=== PATIENT | male | born 1950 | race Caucasian/White ===

== ENCOUNTER → 2019-01-03 | Outpatient (CLI) | payer MEDICARE, OTHER | LOC: LL.DI 13:10 | PROVIDERS: ATTEND Family Medicine | DX: R76.11 Nonspecific reaction to tuberculin skin test without active tuberculosis (principal) | CPT/HCPCS: 71046 ==

== ENCOUNTER 2019-06-13 11:17 | Emergency (ER) | payer MEDICARE, OTHER ==
[~2019-06-13 11:17] MED LIST: Famotidine 20 MG/2 ML SDV ONE; Furosemide 40 MG/4 ML VIAL ONE
[2019-06-13] MEDS ORDERED: Famotidine 20 MG/2 ML SDV IVPUSH ONE (11:18)
[2019-06-13] MEDS ORDERED: Sodium Chloride 0.9% 10 ML Syringe FLUSH PRN (11:18)
--- NOTE | 2019-06-13 11:18 | EDM.PDOC ---
ED HPI GENERAL MEDICAL PROBLEM - General Chief Complaint: Neuro Symptoms/Deficits Stated Complaint: Unresponsive, Stroke Code Time Seen by Provider: 06/13/19 11:18 Departure - Discharge Information
--- NOTE | 2019-06-13 11:30 | EDM.PDOC ---
ED HPI GENERAL MEDICAL PROBLEM - General Chief Complaint: Neuro Symptoms/Deficits Stated Complaint: Unresponsive, Stroke Code Time Seen by Provider: 06/13/19 11:18 Source of Information: Reports: EMS, [facility] Records, Old Records ([facility] EMR. No paper hospital chart available.). Denies: EMS Notes Reviewed (Not available at time of dictation) History Limitations: Reports: Altered Mental Status - History of Present Illness INITIAL COMMENTS - FREE TEXT/NARRATIVE: The patient was brought to the emergency room via embolus with art model accompaniment with O2 repeat increased from previous 5 L/m by nasal cannula to O2 by mask at 10 L/m by nasal cannula. Note the patient's normal O2 sats are in the high 80s and the low 90s on room air with O2 sats in the low 80th percentile on 5 L/m by nasal cannula at time of arrival of paramedics. No other treatment in route. Patient is unable to give any history with limited history obtained from the detention prior to arrival to this facility. Patient did eat breakfast this morning, although he was somewhat fatigued. His fatigue did increase at about 10:25 hours this morning with patient slow to respond with this being the last well-known time of the patient. Accu-Chek by nursing staff at [facility] in [place] was 123 mg percent per history from the paramedics. No known recent history of chest pain or anginal type symptoms. Patient was nonresponsive and diaphoretic at time of their arrival to this facility. No known pain or previous discomfort with patient nonresponsive to either verbal or sternal rub, etc. Onset: Today, Gradual Onset Date: 06/13/19 Onset Time: 10:15 Duration: Constant, Getting Worse Severity: Severe Improves with: Reports: None Worsens with: Reports: None Context: Denies: Sick Contact (No exposure to COVID-19), Trauma Associated Symptoms: Reports: Diaphoresis, Malaise, Other (Nonresponsive as above). Denies: Seizure Treatments SCRIPT SUPERVISOR: Reports: Oxygen - Related Data Allergies Allergy/AdvReac Type Severity Reaction Status Date / Time No Known Allergies Allergy Verified 06/13/19 12:12 Home Meds: Home Meds Acetaminophen [Mapap] 1,000 mg PO Q4H PRN MDD 3 06/13/19 [History] Aspirin [Aspirin EC] 81 mg PO DAILY@0600 20 [History] Capsaicin [Zostrix 0.025% Crm] 1 applic TOP BID PRN 06/13/19 [History] Cholecalciferol (Vitamin D3) [Vitamin D3] 50 mcg PO DAILY@59906/13/19 [History ] Cyanocobalamin (Vitamin B-12) [B-12] 1,000 mcg PO DAILY@59906/13/19 [History] Cyclobenzaprine [Flexeril] 10 mg PO BID PRN 06/13/19 [History] Etodolac 400 mg PO BID@06,189906/13/19 [History] Folic Acid 1 mg PO DAILY@59906/13/19 [History] Furosemide 40 mg PO DAILY@59906/13/19 [History] Gabapentin [Neurontin] 600 mg PO TID@,12,06/13/19 [History] Hydrocortisone 10 mg PO DAILY@189906/13/19 [History] Hydrocortisone 15 mg PO DAILY@59906/13/19 [History] Levothyroxine [Synthroid] 50 mcg PO DAILY@59906/13/19 [History] Lidocaine 5% [Lidoderm 5%] 1 patch TOP DAILY@59906/13/19 [History] Losartan [Cozaar] 25 mg PO DAILY@59906/13/19 [History] Nitroglycerin [Nitrostat] 0.4 mg SL ASDIRECTED PRN MDD 2 06/13/19 [History] Omeprazole 40 mg PO DAILY@59906/13/19 [History] Spironolactone [Aldactone] 25 mg PO DAILY@59906/13/19 [History] Thiamine HCl 100 mg PO DAILY@59906/13/19 [History] atorvaSTATin [Lipitor] 40 mg PO BEDTIME@189906/13/19 [History] carvediloL [Coreg] 12.5 mg PO BID@599,189906/13/19 [History] dexAMETHasone [Dexamethasone] 4 mg IM ASDIRECTED PRN 06/13/19 [History] polyethylene glycoL 3350 [MiraLAX] 17 gm PO DAILY@59906/13/19 [History] Past Medical History HEENT History: Reports: Cataract, Hard of Hearing, Impaired Vision, Other (See Below) Other HEENT History: Chronic tinnitus. Cardiovascular History: Reports: CAD, Cardiomyopathy, Heart Failure, High Cholesterol, Hypertension, Pacemaker, Other (See Below) Other Cardiovascular History: History of cardiomegaly with known combined systolic/diastolic CHF. Mi history unknown. Respiratory History: Reports: COPD, Other (See Below) Other Respiratory History: Chronic hypoxia Gastrointestinal History: Reports: Colon Polyp, GERD, Hiatal Hernia, Other (See Below) Other Gastrointestinal History: Linder's esophagitis. Large diaphragmatic hernia. Genitourinary History: Reports: Acute Renal Failure, BPH, Urinary Incontinence, Other (See Below) Other Genitourinary History: Mild acute renal insufficiency with hyperkalemia on 05/03/19. Psychiatric History: Reports: Addiction, Anxiety, Depression, Other (See Below) Other Psychiatric History: History of alcohol abuse. Endocrine/Metabolic History: Reports: Hypokalemia, Hypothyroidism, Obesity/BMI 30+, Vitamin D Deficiency, Other (See Below) Other Endocrine/Metabolic History: Unknown type of adrenal cortical deficiency. Hypoalbuminemia. Hematologic History: Reports: Anemia - Past Surgical History Cardiovascular Surgical History: Reports: Pacer Male Surgical History: Denies: Circumcision ED ROS GENERAL - Review of Systems Review Of Systems: Unable To Obtain Reason Not Obtained: comatos as above ED EXAM, NEURO - Physical Exam Exam: See Below Exam Limited By: Altered Mental Status General Appearance: Obtunded, Severe Distress Eye Exam: Bilateral Eye: EOMI (No ocular movement secondary to sedation), Normal Fundi (Fundi normal although difficult exam secondary to myosis, no nystagmus), PERRL (Moderate myosis with only minimal response to light bilaterally) Ears: Normal External Exam, Normal Canal (Moderate cerumen in EACs bilaterally) , Normal TMs, Hearing Loss (by history could not be assessed) Nose: Normal Inspection, Normal Mucosa, No Blood Throat/Mouth: Normal Gums, Normal Oropharynx, Perioral Cyanosis. No: Normal Teeth (Complete dentures uppers and lowers), Dysphagia Head Exam: Atraumatic, Normocephalic. No: Facial Swelling, Facial Tenderness, Sinus Tenderness Neck: Supple, Non-Tender, Carotid Bruit (Mild bilateral carotid bruits). No: Lymphadenopathy (L), Lymphadenopathy (R), Thyromegaly Respiratory/Chest: No Accessory Muscle Use, Respiratory Distress (Mild Kussmaul breathing), Rales (Severe diffuse bilateral). No: Pleural Rub, Retractions Cardiovascular: Normal Peripheral Pulses, Regular Rate, Rhythm, No Gallop, No JVD, No Murmur, No Rub. No: No Edema (Dependent edema as below), Gallop/S3, Gallop/S4, Friction Rub GI/Abdominal: Normal Bowel Sounds, Soft, Non-Tender, No Organomegaly, No Distention, No Abnormal Bruit, No Mass, Pelvis Stable, Other (Obese). No: Guarding (Male) Exam: Deferred Rectal (Males) Exam: Deferred Neurological: Other (No response to verbal or painful stimuli). No: Babinski Back Exam: Normal Inspection, Full Range of Motion. No: CVA Tenderness (L), CVA Tenderness (R), Muscle Spasm Extremities: Non-Tender, Normal Capillary Refill, Pedal Edema (+1-+2 bilateral pedal/pretibial edema). No: Trudy's Sign Psychiatric: Other (Cannot be assessed) Skin Exam: Cyanosis (Moderate on arrival improved with oxygenation), Diaphoretic. No: Ecchymosis, Petechiae, Wound/Incision EKG INTERPRETATION EKG Date: 06/13/19 Time: 11:37 Rhythm: Other (100% paced rhythm) Rate (Beats/Min): 62 Comparison: NA - No Prior EKG EKG Interpretation Comments: 100% paced rhythm Course - Vital Signs Last Recorded V/S: See Stroke Code sheet - Orders/Labs/Meds Orders: Active Orders 24 hr Category Date Time Status Blood Glucose Check, Bedside [RC] STAT Care 06/13/19 11:19 Active Cardiac Monitoring [RC] STAT Care 06/13/19 11:19 Active EKG Documentation Completion [RC] ASDIRECTED Care 06/13/19 11:19 Active NIH Stroke Scale [RC] ASDIRECTED Care 06/13/19 11:19 Active Oxygen Therapy, ED [RC] CONTINUOUS Care 06/13/19 11:19 Active Peripheral IV Care [RC] . DIRECTED Care 06/13/19 11:19 Active Pulse Oximetry [RC] CONTINUOUS Care 06/13/19 11:19 Active Up With Assistance [RC] ASDIRECTED Care 06/13/19 11:19 Active Urinary Catheter Assessment [RC] ASDIRECTED Care 06/13/19 11:53 Active Urinary Catheter Insertion [Insert Urinary Catheter] [ Care 06/13/19 12:00 Ordered OM.PC] Q24H Vital Signs [RC] PFP Care 06/13/19 11:19 Active Nothing per Oral Now Diet [DIET] Diet 06/13/19 Breakfast Active Chest 1V Frontal [CR] Stat Exams 06/13/19 11:19 Taken Head wo Cont [CT] Stat Exams 06/13/19 11:19 Taken CULTURE URINE [RM] Routine Lab 06/13/19 11:53 Ordered PROLACTIN [REF] Stat Lab 06/13/19 11:50 Received Sodium Chloride 0.9% [Saline Flush] Med 06/13/19 11:18 Active 10 ml FLUSH ASDIRECTED PRN Obtain Past Medical Record [OM.PC] Stat Oth 06/13/19 11:19 Active Peripheral IV Insertion Adult [OM.PC] Stat Oth 06/13/19 11:19 Ordered Resuscitation Status Stat Resus Stat 06/13/19 11:18 Ordered Medication Orders Sodium Chloride (Saline Flush) 10 ml FLUSH ASDIRECTED PRN PRN Reason: Keep Vein Open Labs: Laboratory Tests 06/13/19 06/13/19 06/13/19 Range/Units 11:20 11:27 11:30 WBC 14.7 H (4.0-10.2) K/uL RBC 4.77 (4.33-5.41) M/uL Hgb 14.0 (13.1-16.8) g/dL Hct 49.5 H (39.0-49.0) % MCV 103.8 H (84.0-98.0) fL MCH 29.4 (28.2-33.3) pg MCHC 28.3 L (31.7-36.0) g/dL RDW 15.1 H (11.2-14.1) % Plt Count 237 D (150-350) K/uL Neut % (Auto) 81.4 H (45.0-80.0) % Lymph % (Auto) 13.1 (10.0-50.0) % Sullivan % (Auto) 4.9 (2.0-14.0) % Eos % (Auto) 0.3 (0.0-5.0) % Baso % (Auto) 0.3 (0.0-2.0) % Neut # (Auto) 11.98 H (1.40-7.00) K/uL Lymph # (Auto) 1.93 (0.50-3.50) K/uL Sullivan # (Auto) 0.72 (0.00-1.00) K/uL Eos # (Auto) 0.04 (0.00-0.50) K/uL Baso # (Auto) 0.05 (0.00-0.20) K/uL PT (9.5-12.0) SEC INR APTT (24.5-32.8) SEC D-Dimer, Quantitative 109 (0-400) ng/mL Sodium (136-145) mmol/L Potassium (3.5-5.1) mmol/L Chloride (98-107) mmol/L Carbon Dioxide (21.0-32.0) mmol/L BUN (7-18) mg/dL Creatinine (0.51-1.17) mg/dL Est Cr Clr Drug Dosing mL/min Estimated GFR (MDRD) mL/min Glucose (74-106) mg/dL POC Glucose 166 H (65-110) mg/dl Lactic Acid (0.4-2.0) mmol/L Uric Acid (2.6-7.2) mg/dL Calcium (8.5-10.1) mg/dL Magnesium (1.8-2.4) mg/dL Total Bilirubin (0.2-1.0) mg/dL AST (15-37) U/L ALT (12-78) U/L Alkaline Phosphatase (46-116) IU/L Creatine Kinase (26-308) U/L Creatine Kinase Index (0.0-2.5) % CK-MB (CK-2) (0.00-3.60) ng/mL Troponin I (0.000-0.056) ng/mL NT-Pro-B Natriuret Pep (0-125) pg/mL Total Protein (6.4-8.2) g/dL Albumin (3.4-5.0) g/dL TSH, Ultra Sensitive (0.358-3.740) mIU/mL Specimen Type Urine Color (YELLOW) Urine Appearance (CLEAR) Urine pH (5.0-9.0) Ur Specific Frank[place] (1.005-1.030) Urine Protein (NEGATIVE) mg/dL Urine Glucose (UA) (NEGATIVE) mg/dL Urine Ketones (NEGATIVE) mg/dL Urine Occult Blood (NEGATIVE) Urine Nitrite (NEGATIVE) Urine Bilirubin (NEGATIVE) Urine Urobilinogen (0.2-1.0) E.U./dL Ur Leukocyte Esterase (NEGATIVE) U Hyaline Cast (Auto) Urine RBC /HPF Urine WBC /HPF Urine Bacteria (NONE TO FEW) /HPF Ethyl Alcohol (0.000-0.080) g/dL 06/13/19 06/13/19 06/13/19 Range/Units 11:50 11:50 11:50 WBC (4.0-10.2) K/uL RBC (4.33-5.41) M/uL Hgb (13.1-16.8) g/dL Hct (39.0-49.0) % MCV (84.0-98.0) fL MCH (28.2-33.3) pg MCHC (31.7-36.0) g/dL RDW (11.2-14.1) % Plt Count (150-350) K/uL Neut % (Auto) (45.0-80.0) % Lymph % (Auto) (10.0-50.0) % Sullivan % (Auto) (2.0-14.0) % Eos % (Auto) (0.0-5.0) % Baso % (Auto) (0.0-2.0) % Neut # (Auto) (1.40-7.00) K/uL Lymph # (Auto) (0.50-3.50) K/uL Sullivan # (Auto) (0.00-1.00) K/uL Eos # (Auto) (0.00-0.50) K/uL Baso # (Auto) (0.00-0.20) K/uL PT 10.1 (9.5-12.0) SEC INR 1.0 APTT 23.1 L (24.5-32.8) SEC D-Dimer, Quantitative (0-400) ng/mL Sodium 143 (136-145) mmol/L Potassium 5.8 H* (3.5-5.1) mmol/L Chloride 102 (98-107) mmol/L Carbon Dioxide 40.2 H* (21.0-32.0) mmol/L BUN 20 H (7-18) mg/dL Creatinine 1.10 (0.51-1.17) mg/dL Est Cr Clr Drug Dosing 72.64 mL/min Estimated GFR (MDRD) > 60 mL/min Glucose 204 H (74-106) mg/dL POC Glucose (65-110) mg/dl Lactic Acid 0.6 (0.4-2.0) mmol/L Uric Acid 3.4 (2.6-7.2) mg/dL Calcium 9.2 (8.5-10.1) mg/dL Magnesium 2.4 (1.8-2.4) mg/dL Total Bilirubin 0.3 (0.2-1.0) mg/dL AST 14 L (15-37) U/L ALT 20 (12-78) U/L Alkaline Phosphatase 111 (46-116) IU/L Creatine Kinase 84 (26-308) U/L Creatine Kinase Index 1.5 (0.0-2.5) % CK-MB (CK-2) 1.30 (0.00-3.60) ng/mL Troponin I 0.009 (0.000-0.056) ng/mL NT-Pro-B Natriuret Pep 414 H (0-125) pg/mL Total Protein 7.6 (6.4-8.2) g/dL Albumin 3.3 L (3.4-5.0) g/dL TSH, Ultra Sensitive 1.441 (0.358-3.740) mIU/mL Specimen Type Urine Color (YELLOW) Urine Appearance (CLEAR) Urine pH (5.0-9.0) Ur Specific Frank[place] (1.005-1.030) Urine Protein (NEGATIVE) mg/dL Urine Glucose (UA) (NEGATIVE) mg/dL Urine Ketones (NEGATIVE) mg/dL Urine Occult Blood (NEGATIVE) Urine Nitrite (NEGATIVE) Urine Bilirubin (NEGATIVE) Urine Urobilinogen (0.2-1.0) E.U./dL Ur Leukocyte Esterase (NEGATIVE) U Hyaline Cast (Auto) Urine RBC /HPF Urine WBC /HPF Urine Bacteria (NONE TO FEW) /HPF Ethyl Alcohol 0.000 (0.000-0.080) g/dL 06/13/19 Range/Units 12:10 WBC (4.0-10.2) K/uL RBC (4.33-5.41) M/uL Hgb (13.1-16.8) g/dL Hct (39.0-49.0) % MCV (84.0-98.0) fL MCH (28.2-33.3) pg MCHC (31.7-36.0) g/dL RDW (11.2-14.1) % Plt Count (150-350) K/uL Neut % (Auto) (45.0-80.0) % Lymph % (Auto) (10.0-50.0) % Sullivan % (Auto) (2.0-14.0) % Eos % (Auto) (0.0-5.0) % Baso % (Auto) (0.0-2.0) % Neut # (Auto) (1.40-7.00) K/uL Lymph # (Auto) (0.50-3.50) K/uL Sullivan # (Auto) (0.00-1.00) K/uL Eos # (Auto) (0.00-0.50) K/uL Baso # (Auto) (0.00-0.20) K/uL PT (9.5-12.0) SEC INR APTT (24.5-32.8) SEC D-Dimer, Quantitative (0-400) ng/mL Sodium (136-145) mmol/L Potassium (3.5-5.1) mmol/L Chloride (98-107) mmol/L Carbon Dioxide (21.0-32.0) mmol/L BUN (7-18) mg/dL Creatinine (0.51-1.17) mg/dL Est Cr Clr Drug Dosing mL/min Estimated GFR (MDRD) mL/min Glucose (74-106) mg/dL POC Glucose (65-110) mg/dl Lactic Acid (0.4-2.0) mmol/L Uric Acid (2.6-7.2) mg/dL Calcium (8.5-10.1) mg/dL Magnesium (1.8-2.4) mg/dL Total Bilirubin (0.2-1.0) mg/dL AST (15-37) U/L ALT (12-78) U/L Alkaline Phosphatase (46-116) IU/L Creatine Kinase (26-308) U/L Creatine Kinase Index (0.0-2.5) % CK-MB (CK-2) (0.00-3.60) ng/mL Troponin I (0.000-0.056) ng/mL NT-Pro-B Natriuret Pep (0-125) pg/mL Total Protein (6.4-8.2) g/dL Albumin (3.4-5.0) g/dL TSH, Ultra Sensitive (0.358-3.740) mIU/mL Specimen Type Urincath Urine Color Yellow (YELLOW) Urine Appearance Clear (CLEAR) Urine pH 5.0 (5.0-9.0) Ur Specific Frankford 1.030 (1.005-1.030) Urine Protein >=300 H (NEGATIVE) mg/dL Urine Glucose (UA) Negative (NEGATIVE) mg/dL Urine Ketones Negative (NEGATIVE) mg/dL Urine Occult Blood Trace-intact H (NEGATIVE) Urine Nitrite Negative (NEGATIVE) Urine Bilirubin Large H (NEGATIVE) Urine Urobilinogen 0.2 (0.2-1.0) E.U./dL Ur Leukocyte Esterase Negative (NEGATIVE) U Hyaline Cast (Auto) Few Urine RBC 0-5 /HPF Urine WBC 0-5 /HPF Urine Bacteria Many H (NONE TO FEW) /HPF Ethyl Alcohol (0.000-0.080) g/dL Meds: Medications Generic Name Dose Route Start Last Admin Trade Name Freq PRN Reason Stop Dose Admin Sodium Chloride 10 ml 06/13/19 11:18 Saline Flush FLUSH ASDIRECTED PRN Keep Vein Open Discontinued Medications Generic Name Dose Route Start Last Admin Trade Name Freq PRN Reason Stop Dose Admin Aspirin 300 mg 06/13/19 13:14 Aspirin RECTAL 06/13/19 13:15 ONETIME ONE Famotidine 40 mg 06/13/19 11:18 Pepcid IVPUSH 06/13/19 11:19 ONETIME ONE Furosemide 60 mg 06/13/19 11:52 Lasix IVPUSH 06/13/19 11:53 NOW ONE - Radiology Interpretation Free Text/Narrative:: hall monitor shows 100% paced rhythm with heart rate in the low 60s with no extrasystoles or other cardiac arrhythmias Telephone consultation at 11:39 hours with the radiology department at [facility]. Limited verbal report of noncontrast CT scan of the head. Possible mild cerebral edema at the posterior corpus callosum with no intracerebral hemorrhage, mass effect, etc. Chest x-ray, portable, shows moderate cardiomegaly with clear bilateral CHF with a small left pleural effusion. Pulmonary infiltrates could not be assessed secondary to this CHF, however no pneumothorax, etc. Possible COPD changes. CT Results Date: 06/13/19 CT Results Time: 11:39 Departure - Departure Time of Disposition: 13:35 Disposition: DC/Tfer to [facility] ([facility]3] Hospital 02 Clinical Impression: CHF (congestive heart failure), Hypertension, Hyperlipidemia, COPD (chronic obstructive pulmonary disease), Peptic reflux disease, Osteoarthritis, Renal insufficiency, Mixed anxiety depressive disorder, Need for comfort care, Hyperkalemia, Hypoalbuminemia, Hyperglycemia - Discharge Information *PRESCRIPTION DRUG MONITORING PROGRAM REVIEWED*: Not Applicable *COPY OF PRESCRIPTION DRUG MONITORING REPORT IN PATIENT ROSANA: Not Applicable Referrals: PCP,None [Primary Care Provider] - Forms: ED Department Discharge, Interfacility Transfer EMTALA Sepsis Event Note - Focused Exam Date Exam was Performed: 06/13/19 Time Exam was Performed: 13:32 - Problem List & Annotations (1) CVA (cerebral vascular accident) SNOMED Code(s): 922411094 Code(s): I63.9 - CEREBRAL INFARCTION, UNSPECIFIED Status: Acute Priority : High Current Visit: Yes Onset Date: 06/13/19 Annotation/Comment:: Stroke code called in this facility upon patient's arrival to this facility with all treatment staff in the emergency room at time of his arrival. Note Accu -Chek of 123 mg percent by the nursing staff prior to transfer the patient to this facility with repeat Accu-Chek in this facility as per standard protocol with results as above. Note emergency room and stroke neurologist consultation as below. Qualifiers: CVA mechanism: unspecified Qualified Code(s): I63.9 - Cerebral infarction, unspecified (2) CHF (congestive heart failure) SNOMED Code(s): 68525583 Code(s): I50.9 - HEART FAILURE, UNSPECIFIED Status: Acute Priority: High Current Visit: Yes Onset Date: 06/13/19 Annotation/Comment:: Severe CHF by today's exam with known previous history of combined systolic and diastolic dysfunction with recurrent CHF. No known recent anginal complaints as above. High-dose IV Lasix initiated in the emergency room. Note NO CODE STATUS. Telephone consultation at 12:33 PM with the patient's son, Heath, who did verify his comfort care status. He is also in agreement with transfer the patient to [facility] in [place]. Subsequent telephone consultation with [facility] on 12:37 hours with additional telephone consultation at 12:[address] Jones, stroke neurologist, and Dr. Mondragon, ER physician, who were concerned about the family's request for no intubation since this would be required for any neurological procedures, etc.. Subsequent telephone consultation with the patient's son at 13:05 hours with his son now in agreement to brief intubation for any required neurological procedures, however no extended intubation as per previous comfort care requests. The son is aware that the patient may without intubation during the transfer process. Subsequent repeat telephone consultation at 13:[address] Mondragon and Dr. Ott, who agreed to accept the patient through the emergency room with a stroke code to be called for further evaluation, etc. Dr. Trejo is in agreement with rectal aspirin per stroke protocol, which was given prior to patient's transfer. Qualifiers: Heart failure type: combined systolic and diastolic Heart failure chronicity: acute on chronic Qualified Code(s): I50.43 - Acute on chronic combined systolic (congestive) and diastolic (congestive) heart failure (3) Need for comfort care SNOMED Code(s): 893733350, 096873253 Code(s): EVO3030 - Status: Chronic Priority: High Current Visit: Yes Annotation/Comment:: Note telephone consultations with the patient's son/POA, Heath, as above. Prognosis is extremely poor. (4) COPD (chronic obstructive pulmonary disease) SNOMED Code(s): 70113262 Code(s): J44.9 - CHRONIC OBSTRUCTIVE PULMONARY DISEASE, UNSPECIFIED Status : Chronic Priority: Medium Current Visit: Yes Annotation/Comment:: COPD by chest x-ray with no current therapy or recent history of fever, cough, known COVID-19 exposure, etc.. Note normal lactic acid level or current fever. Leukocytosis likely secondary to stress reaction. Note some CO2 retention prior to patient's downward titration of his O2 therapy with patient transferred at 3 L/m by mask with some desaturation when switched to nasal cannula. No change in neurological status, sedation, etc. with decreased O2 therapy. Qualifiers: COPD type: emphysema Emphysema type: panlobular Qualified Code(s): J43.1 - Panlobular emphysema (5) Hyperlipidemia SNOMED Code(s): 31857887 Code(s): E78.5 - HYPERLIPIDEMIA, UNSPECIFIED Status: Chronic Priority: Medium Current Visit: Yes Annotation/Comment:: Under therapy. Note current morbid obesity. Qualifiers: Hyperlipidemia type: unspecified Qualified Code(s): E78.5 - Hyperlipidemia , unspecified (6) Hypertension SNOMED Code(s): 03045326 Code(s): I10 - ESSENTIAL (PRIMARY) HYPERTENSION Status: Chronic Priority : Medium Current Visit: Yes Annotation/Comment:: Somewhat elevated blood pressures in the emergency room and IV Lasix given as above. No further treatment of his blood pressure at this time per instructions from the neurologist and as per our standard stroke protocol. Qualifiers: Hypertension type: essential hypertension Qualified Code(s): I10 - Essential (primary) hypertension (7) Mixed anxiety depressive disorder SNOMED Code(s): 003643521 Code(s): F41.8 - OTHER SPECIFIED ANXIETY DISORDERS Status: Chronic Priority: Medium Current Visit: Yes Annotation/Comment:: Stable by history with no apparent recent alcohol use with history of alcohol abuse in the past (8) Osteoarthritis SNOMED Code(s): 478026330 Code(s): M19.90 - UNSPECIFIED OSTEOARTHRITIS, UNSPECIFIED SITE Status: Chronic Priority: Medium Current Visit: Yes Annotation/Comment:: [place] by history with no history of fall or injury. Qualifiers: Osteoarthritis location: multiple joints Osteoarthritis type: primary Qualified Code(s): M89.49 - Other hypertrophic osteoarthropathy, multiple sites (9) Peptic reflux disease SNOMED Code(s): 458723447 Code(s): K21.9 - GASTRO-ESOPHAGEAL REFLUX DISEASE WITHOUT ESOPHAGITIS Status: Chronic Priority: Medium Current Visit: Yes Annotation/Comment:: Known history of Linder's esophagitis with high-dose IV Pepcid given in the emergency room as GI prophylaxis.. (10) Renal insufficiency SNOMED Code(s): 066225215, 806112256 Code(s): N28.9 - DISORDER OF KIDNEY AND URETER, UNSPECIFIED Status: Chronic Priority: Medium Current Visit: Yes Onset Date: 05/03/19 Annotation/Comment:: Acute renal insufficiency with secondary hyperkalemia on improved with subsequent follow-up blood work. (11) Hyperkalemia SNOMED Code(s): 19887029 Code(s): E87.5 - HYPERKALEMIA Status: Acute Priority: High Current Visit: Yes Onset Date: 06/13/19 Annotation/Comment:: Note history of hyperkalemia and mild acute renal insufficiency as above. Renal function is actually improved, however returned hyperkalemia. IV Lasix given as above. Continue to observe patient's renal function closely. (12) Hypoalbuminemia SNOMED Code(s): 114378642 Code(s): E88.09 - OTH DISORDERS OF PLASMA-PROTEIN METABOLISM, NEC Status: Chronic Priority: Medium Current Visit: Yes Annotation/Comment:: Observe for now (13) Hyperglycemia SNOMED Code(s): 16956904 Code(s): R73.9 - HYPERGLYCEMIA, UNSPECIFIED Status: Acute Priority: Medium Current Visit: Yes Onset Date: 06/13/19 Annotation/Comment:: No previous history of diabetes. Further evaluation depending on his clinical course. - Problem List Review Problem List Initiated/Reviewed/Updated: Yes - My Orders Last 24 Hours: My Active Orders 06/13/19 11:18 Sodium Chloride 0.9% [Saline Flush] 10 ml FLUSH ASDIRECTED PRN Resuscitation Status Stat 06/13/19 11:19 Blood Glucose Check, Bedside [RC] STAT Cardiac Monitoring [RC] STAT EKG Documentation Completion [RC] ASDIRECTED NIH Stroke Scale [RC] ASDIRECTED Oxygen Therapy, ED [RC] CONTINUOUS Peripheral IV Care [RC] . DIRECTED Pulse Oximetry [RC] CONTINUOUS Up With Assistance [RC] ASDIRECTED Vital Signs [RC] PFP Chest 1V Frontal [CR] Stat Head wo Cont [CT] Stat Obtain Past Medical Record [OM.PC] Stat Peripheral IV Insertion Adult [OM.PC] Stat 06/13/19 11:50 PROLACTIN [REF] Stat 06/13/19 11:53 Urinary Catheter Assessment [RC] ASDIRECTED CULTURE URINE [RM] Routine 06/13/19 12:00 Urinary Catheter Insertion [Insert Urinary Catheter] [OM.PC] Q24H 06/13/19 Breakfast Nothing per Oral Now Diet [DIET] - Assessment/Plan Last 24 Hours: My Active Orders 06/13/19 11:18 Sodium Chloride 0.9% [Saline Flush] 10 ml FLUSH ASDIRECTED PRN Resuscitation Status Stat 06/13/19 11:19 Blood Glucose Check, Bedside [RC] STAT Cardiac Monitoring [RC] STAT EKG Documentation Completion [RC] ASDIRECTED NIH Stroke Scale [RC] ASDIRECTED Oxygen Therapy, ED [RC] CONTINUOUS Peripheral IV Care [RC] . DIRECTED Pulse Oximetry [RC] CONTINUOUS Up With Assistance [RC] ASDIRECTED Vital Signs [RC] PFP Chest 1V Frontal [CR] Stat Head wo Cont [CT] Stat Obtain Past Medical Record [OM.PC] Stat Peripheral IV Insertion Adult [OM.PC] Stat 06/13/19 11:50 PROLACTIN [REF] Stat 06/13/19 11:53 Urinary Catheter Assessment [RC] ASDIRECTED CULTURE URINE [RM] Routine 06/13/19 12:00 Urinary Catheter Insertion [Insert Urinary Catheter] [OM.PC] Q24H 06/13/19 Breakfast Nothing per Oral Now Diet [DIET] Assessment:: As above Plan: As above. Patient's son is in agreement with treatment plan and transfer. Patient was transferred to [facility] in [place] via ambulance with art model.
[2019-06-13] MEDS ORDERED: Furosemide 40 MG/4 ML VIAL IVPUSH ONE (11:52)
[2019-06-13 12:19] LABS: CHLORIDE,CL 102 mmol/L (98-107); SODIUM,NA 143 mmol/L (136-145)
[2019-06-13 12:27] LABS: PTT,PARTIAL THROMBOPLSTIN TIME 23.1 SEC (24.5-32.8)
[2019-06-13] MEDS ORDERED: Aspirin 300 MG Supp RECTAL ONE (13:14)
== END 2019-06-13 13:35 ==
LOC: LL.ED 11:17
DX: I11.0 Hypertensive heart disease with heart failure (principal); I50.40 Unspecified combined systolic (congestive) and diastolic (congestive) heart failure; E78.5 Hyperlipidemia, unspecified; M19.90 Unspecified osteoarthritis, unspecified site; N28.9 Disorder of kidney and ureter, unspecified; F41.8 Other specified anxiety disorders; E87.5 Hyperkalemia; R73.9 Hyperglycemia, unspecified; E88.09 Other disorders of plasma-protein metabolism, not elsewhere classified; K27.9 Peptic ulcer, site unspecified, unspecified as acute or chronic, without hemorrhage or perforation; I25.10 Atherosclerotic heart disease of native coronary artery without angina pectoris; J44.9 Chronic obstructive pulmonary disease, unspecified; K21.9 Gastro-esophageal reflux disease without esophagitis; E03.9 Hypothyroidism, unspecified; D64.9 Anemia, unspecified; E66.9 Obesity, unspecified; Z68.41 Body mass index [BMI] 40.0-44.9, adult; Z79.82 Long term (current) use of aspirin; Z95.0 Presence of cardiac pacemaker
CPT/HCPCS: 36415; 51702; 70450; 71045; 80053; 80307; 81001; 82550; 82553; 82962; 83605; 83735; 83880; 84146; 84443; 84484; 84550; 85025; 85379; 85610; 85730; 87086; 87088; 87186; 93005; 93010; 99285; J1940; J3490